=== PATIENT | male | born 2000 | race Two or more races ===

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

== ENCOUNTER 2021-07-05 10:17 | Emergency (ER) | payer OTHER ==
[2021-07-05 10:44] VITALS: TEMP 97.8; BMI 26.2
[2021-07-05 12:36] LABS: BASO % 0.6 % (0-2.0); EOS % 1.9 % (0-4.5); HEMATOCRIT 46.8 % (35.4-49); HEMOGLOBIN 16.2 GM/dL (11.7-16.9); LYMPH % 36.7 % (8-40); MCH 31.6 pg (25.7-33.7); MCHC 34.6 g/dl (32.0-35.9); MEAN CELL VOLUME 91.3 fl (80-96); MEAN PLT VOLUME 7.3 fl (7.5-11.1); MONO % 6.2 % (3.8-10.2); NEUT % 54.6 % (42.8-82.8); PLATELET COUNT 313 10^3/uL (134-434); RBC 5.13 M/mm3 (4.00-5.60); RDW 12.8 % (11.9-15.9); WHITE BLOOD COUNT 3.7 K/mm3 (4.0-10.0)
[2021-07-05 12:55] LABS: CHLORIDE 107 mmol/L (98-107); SODIUM 139 mmol/L (136-145)
[2021-07-05 12:57] LABS: BLOOD UREA NITROGEN 11.5 mg/dL (7-18); CALCIUM 9.5 mg/dL (8.5-10.1)
[2021-07-05 12:58] LABS: ALBUMIN 4.2 g/dl (3.4-5.0); ANION GAP 6 MMOL/L (8-16); CO2 26 mmol/L (21-32); GLUCOSE,RANDOM 92 mg/dL (74-106)
[2021-07-05 13:00] LABS: SGOT/AST 14 U/L (15-37); SGPT/ALT 23 U/L (13-61)
[2021-07-05 13:01] LABS: CREATININE 0.8 mg/dL (0.55-1.3)
[2021-07-05 13:02] LABS: BILIRUBIN,TOTAL 0.5 mg/dL (0.2-1); TOT PROT 7.5 g/dl (6.4-8.2)
[2021-07-05 13:03] LABS: ALK PHOS 66 U/L (45-117)
[2021-07-05] MEDS ORDERED: NICOTINE 21 MG/24 HOURS TOPICAL PATCH TD ONE (13:40)
[2021-07-05 14:10] LABS: PHENCYCLIDINE,URINE NEGATIVE (NEGATIVE); URINE BARBITURATES NEGATIVE (NEGATIVE)
[2021-07-05 14:11] LABS: COCAINE, UR NEGATIVE (NEGATIVE); METHADONE, UR NEGATIVE (NEGATIVE); OPIATES, URI NEGATIVE (NEGATIVE)
[2021-07-05 14:15] LABS: URINE AMPHETAMINES NEGATIVE (NEGATIVE); URINE BENZODIAZEPINES NEGATIVE (NEGATIVE)
[2021-07-05 15:57] VITALS: BP 107/78; PULSE 78
== END 2021-07-05 15:58 | disposition home or self-care (01) ==
LOC: JER 10:17
DX: R45.851 Suicidal ideations (principal); F43.20 Adjustment disorder, unspecified
CPT/HCPCS: 36415; 80053; 80307; 85025; 93005; 93010; 99284-25; C9803; U0003; U0005

== ENCOUNTER 2024-01-26 23:47 | Emergency (ER) | payer OTHER ==
[2024-01-26 23:55] VITALS: BP 104/75; PULSE 95; RESP 16; TEMP 98.3; BMI 29.2
== END 2024-01-27 01:14 | disposition home or self-care (01) ==
LOC: JER 23:47
DX: H57.89 Other specified disorders of eye and adnexa (principal)
CPT/HCPCS: 99283-25